=== PATIENT | female | born 1980 | race Caucasian/White ===

== ENCOUNTER 2017-02-26 17:50 | Emergency (ER) | payer BC, OTHER ==
[~2017-02-26 17:50] MED LIST: MOTRIN800 MG PO; SKELAXIN800 MG PO
[2017-02-26] MEDS ORDERED: IBUPROFEN600 M1 PO (19:41)
[2017-02-26] MEDS ORDERED: NORCO 5-325 TA1 EACH PO (19:41)
== END 2017-02-26 19:45 ==
LOC: EDMED 17:50
DX: M54.2 Cervicalgia (principal); V49.40XA Driver injured in collision with unspecified motor vehicles in traffic accident, initial encounter